=== PATIENT | female | born 1930 | race Caucasian/White ===

== ENCOUNTER 2016-05-16 15:00 | Inpatient (IN) | payer MEDICARE, BC ==
[~2016-05-16] VITALS: Ht 170.2 cm; Wt 58.5 kg
[2016-05-16] MEDS ORDERED: CEFTRIAXONE 1 GM/50 ML (PMX) 50 ML IVPB STA (16:25)
[2016-05-16] MEDS ORDERED: SODIUM CHLORIDE 0.9% 1L BAG IV* STA (16:25)
[2016-05-16] MEDS ORDERED: CIPROFLOXACIN 400MG/D5W 200 ML IVPB ONE (16:30)
[2016-05-16] MEDS ORDERED: ATOR10TA65 PO (16:39)
[2016-05-16] MEDS ORDERED: WARF3TAB PO (16:39)
[2016-05-16] MEDS ORDERED: CHOL100062 PO (16:40)
[2016-05-16] MEDS ORDERED: DIGO250T PO (16:42)
--- NOTE | 2016-05-16 16:53 | RADRPT ---
PROCEDURE: Chest x-ray CLINICAL INDICATION: Shortness of breath TECHNIQUE: Chest single view COMPARISON: None FINDINGS: There is left subclavian single lead pacemaker. Mild cardiomegaly and an sclerotic aortic calcifica tion is seen. The pulmonary vessels are normal in caliber. The lungs are clear. The costophrenic angles are sharp. The bones are osteopenic. There is previous right rotator cuff surgery. IMPRESSION: No acute cardiopulmonary disease. Mild cardiomegaly and an sclerotic aortic calcification Pacemaker RPTAT: HH .Adarsh Aguirre MD, Date Time Electronically viewed and signed by .Adarsh Aguirre MD, on 05/16/2016 16:53 .W/
[2016-05-16 17:11] LABS: ADD SCAN DIFF NO
[2016-05-16 17:25] LABS: BASOPHILS % 0.5 % (0.0-2.0); EOSINOPHILS # 0.2 10^3/ul (0.0-0.5); EOSINOPHILS % 2.4 % (0.0-7.0); HEMATOCRIT 39.4 % (37.0-47.0); HEMOGLOBIN 12.7 g/dl (12.0-16.0); LYMPHOCYTES # 2.6 10^3/ul (0.8-2.9); LYMPHOCYTES % 33.7 % (15.0-51.0); MEAN CORPUSCULAR HEMOGLOBIN 28.9 pg (29.0-33.0); MEAN CORPUSCULAR HGB CONC 32.2 g/dl (32.0-37.0); MEAN CORPUSCULAR VOLUME 89.7 fl (82.0-101.0); MEAN PLATELET VOLUME 10.3 fl (7.4-10.4); MONOCYTE # 0.8 10^3/ul (0.3-0.9); MONOCYTES % 10.1 % (0.0-11.0); NEUTROPHIL # 4.1 10^3/ul (1.6-7.5); NEUTROPHILS % 52.7 % (39.0-77.0); PLATELET COUNT 249 10^3/UL (140-415); RED BLOOD COUNT 4.39 10^6/ul (4.20-5.40); RED CELL DISTRIBUTION WIDTH 13.3 % (11.5-14.5); WHITE BLOOD COUNT 7.8 10^3/ul (4.8-10.8)
[2016-05-16 17:43] LABS: ADD UMIC YES; URINE BILIRUBIN (Dip) NEGATIVE (NEGATIVE); URINE BLOOD (Dip) 2+ (NEGATIVE); URINE GLUCOSE (Dip) NEGATIVE (NEGATIVE); URINE KETONES (Dip) TRACE (NEGATIVE); URINE LEUKOCYTE ESTERASE (Dip) 1+ (NEGATIVE); URINE NITRITE (Dip) NEGATIVE (NEGATIVE); URINE TOTAL PROTEIN (Dip) 2+ (NEGATIVE); URINE UROBILINOGEN (Dip) 0.2 E.U./dL (0.1-1.0)
[2016-05-16 17:45] LABS: ALBUMIN 3.8 g/dl (3.3-4.9); CHLORIDE 103 mmol/L (97-110); POTASSIUM 4.2 mmol/L (3.5-5.1); SODIUM 144 mmol/L (135-144)
[2016-05-16 17:46] LABS: INR 1.29; PROTIME 16.2 Sec (12.2-14.2); PT RATIO 1.3; URINE COLOR YELLOW (YELLOW)
[2016-05-16 17:47] LABS: ANION GAP 18 (8-16); ASPARTATE AMINO TRANSFERASE 40 IU/L (15-46); BILIRUBIN,INDIRECT 0.3 mg/dl (0-1.1); BILIRUBIN,TOTAL 0.3 mg/dl (0.2-1.3); CARBON DIOXIDE 27 mmol/L (21-31); CREATININE 0.83 mg/dl (0.44-1.00); PARTIAL THROMBOPLASTIN TIME 31.3 Sec (25.0-35.0)
[2016-05-16 17:48] LABS: ALANINE AMINOTRANSFERASE 30 IU/L (13-69); ALBUMIN/GLOBULIN RATIO 0.97; ALKALINE PHOSPHATASE 90 IU/L (42-121); BLOOD UREA NITROGEN 25 mg/dl (7-20); GLUCOSE 104 mg/dl (70-220); TOTAL PROTEIN 7.7 g/dl (6.1-8.1)
[2016-05-16 18:07] LABS: TROPONIN-I < 0.012 ng/ml (0.00-0.12)
[2016-05-16 18:10] LABS: BACTERIA,URINE MODERATE; SQUAMOUS EPITHELIAL CELL,UR FEW
[2016-05-16] MEDS ORDERED: IOHEXOL 300MG/ML 150 ML BTL ONE (18:44)
[2016-05-16] MEDS ORDERED: SOD CHLORIDE 0.9% 100 ML ONE (18:44)
[2016-05-16] MEDS ORDERED: DOCUSATE SODIUM 100 MG CAP PO PRN (19:00)
[2016-05-16] MEDS ORDERED: NACL 0.9% 3 ML SYG IV SCH (19:00)
[2016-05-16] MEDS ORDERED: hydrALAzine 20 MG INJ IV PRN (19:00)
[2016-05-16] MEDS ORDERED: NITROGLYCERIN (SL) 0.4 MG TAB SL PRN (19:00)
[2016-05-16] MEDS ORDERED: LORAZEPAM 2 MG INJ IV PRN (19:00)
[2016-05-16] MEDS ORDERED: MAGNESIUM HYDROXIDE 30ML CUP PO PRN (19:00)
[2016-05-16] MEDS ORDERED: HYDROCODONE/APAP (5/325) TAB PO PRN (19:00)
[2016-05-16] MEDS ORDERED: NA PHOSPHATE/BIPHOS 133 ML ENEMA PR PRN (19:00)
[2016-05-16] MEDS ORDERED: ACETAMINOPHEN 325 MG TAB PO PRN ×2 (19:00→19:30)
[2016-05-16] MEDS ORDERED: ALBUTEROL/IPRATROPIUM (NEB) 3 ML AMP HHN PRN (19:00)
[2016-05-16] MEDS ORDERED: ONDANSETRON 4 MG INJ IV PRN ×2 (19:00→19:30)
[2016-05-16] MEDS ORDERED: PIPER-TAZO 3.375 GM IV (PMX) 100 ML IVPB ONE (19:00)
[2016-05-16] MEDS ORDERED: morphine 2 MG INJ IV PRN (19:00)
--- NOTE | 2016-05-16 19:14 | RADRPT ---
PROCEDURE: CT brain without contrast CLINICAL INDICATION: Sudden altered mental status with confusion and headache TECHNIQUE: A CT of the brain was performed utilizing axial sections from the skull base through th e vertex without contrast. Sagittal and coronal images were also reformatted. The exam CTDIvol = 39. 54 mGy and DLP = 634.23 mGy-cm. COMPARISON: None available FINDINGS: No acute intracranial hemorrhage is identified. There is no mass effect or midline shift. No extra -axial fluid collection is seen. The ventricles and sulci are normal in size and configuration for the patient's provided age of 85 years consistent with age-appropriate generalized atrophy. Extensi ve low attenuation in the subcortical and periventricular white matter is nonspecific but likely ref lects the sequela of chronic small vessel ischemia. Sifuentes-white differentiation is preserved with no findings to suggest an acute ischemic infarct. The fourth ventricle is midline and there is no density alteration within the cecilia or cerebellum. The osseous structures are unremarkable. Trace chronic appearing ethmoid and left sphenoid sinus di sease is present the remaining included paranasal sinuses and mastoid air cells are clear. 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 Physician Jayson Date Time Electronically viewed and signed by Physician Jayson on 05/16/2016 19:13 /
--- NOTE | 2016-05-16 19:25 | ERA ---
ER Documentation Chief Complaint Date/Time DATE: 05/16/16 TIME: 19:16 Chief Complaint TX FOR UTI SINCE THURSDAY W/ NO IMPROVEMENT. RECENT SX ON 05/14. 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 Her detail technician oncologist surgeon is Dr. Vanessa Frank. The patient underwent radiation and is not currently undergoing any chemotherapy. In April roughly 1 month prior to arrival the patient developed vaginal pruritus and discharge. She was placed on a vaginal cream with no improvement of her symptoms. She had frequency urgency and dysuria but initially did not tell her family as they were traveling to visit other family members in [place]. Upon the return is when the patient told her daughter of the symptoms. Her daughter immediately phoned her primary care physician who obtained a urine culture. This was positive for urine infection and susceptible to ciprofloxacin. Therefore the patient was placed on ciprofloxacin 500 mg twice daily which she has been taking for the past 5 days. Her daughter brought her to the emergency department today she states her symptoms have not improved as her dysuria appears to be significantly worsening. She has not had a fever shaking or chills. She has felt nauseous but has not experience any emesis. According to the daughter she was complaining of mild suprapubic pain but denied any flank pain. She has had no hemoptysis no hematemesis and no melanotic stools. She has no shortness of breath at rest or exertion. She denies any chest pain or pressure that radiates to the neck arm back or jaw ROS All systems reviewed and are negative except as per history of present illness. Medications Home Meds Reported Medications Digoxin* (Digitek*) 250 Mcg Tablet, 0.125 MG PO QAM, TAB 05/16/16 Cholecalciferol* (Vitamin D3*) 1,000 Unit Tablet, 1000 UNIT PO DAILY, TAB 05/16/16 Atorvastatin Calcium (Atorvastatin Calcium) 10 Mg Tablet, 10 MG PO QHS, #30 TAB 05/16/16 Warfarin Sodium* (Coumadin*) 3 Mg Tablet, 3 MG PO QHS, TAB 05/16/16 Allergies Allergies: Coded Allergies: morphine (Verified Allergy, Unknown, n/v, 05/16/16) PMhx/Soc History of Surgery: Yes (ROTATOR CUFF SX) Physical Exam Vitals Vital Signs Date Time Temp Pulse Resp B/P Pulse Ox O2 Delivery O2 Flow Rate FiO2 05/16/16 15:14 98.4 100 20 123/61 97 Physical Exam Constitutional:Well-developed. Well-nourished. HEENT:Normocephalic. Atraumatic.Pupils were equal round reactive to light. Dry mucous membranes.No tonsillar exudates. Neck: No nuchal rigidity. No lymphadenopathy. No posterior cervical spine tenderness or step-offs. Respiratory: Not using accessory muscles of respiration.Lungs were clear to auscultation bilaterally. No rhonchi. No rales. No wheezing. Cardiovascular: Regular rate regular rhythm.No murmurs. No rubs were appreciated.S1, S2 normal. Distal pulses are palpable 2+ bilaterally. GI: Abdomen was soft. Mild suprapubic tenderness. Non Distended. No pulsatile abdominal masses or bruits. No rebound. No guarding. Bowel sounds were present and normal. Muscle skeletal: Full range of motion of both the upper and lower extremities bilaterally.Normal muscle tone.No assymetrical calf tenderness or swelling. Skin: No petechia, no purpura. No lesions on the palms or the soles of the feet. No maculopapular rash. NEURO: Patient was alert, awake, orientated x3.No facial droop. Gait observed and normal with no ataxia.Speech had regular rate and rhythm. No focal neurological deficits. Result Diagram: 05/16/16 1645 05/16/16 1645 Results 24 hrs Laboratory Tests Test 05/16/16 16:45 Activated Partial Thromboplast Time 31.3Sec Alanine Aminotransferase (ALT/SGPT) 30IU/L Albumin 3.8g/dl Albumin/Globulin Ratio 0.97 Alkaline Phosphatase 90IU/L Anion Gap 18 Aspartate Amino Transf (AST/SGOT) 40IU/L Basophils # 0.010^3/ul Basophils % 0.5% Blood Urea Nitrogen 25mg/dl Calcium Level 10.0mg/dl Carbon Dioxide Level 27mmol/L Chloride Level 103mmol/L Creatinine 0.83mg/dl Direct Bilirubin 0.00mg/dl Eosinophils # 0.210^3/ul Eosinophils % 2.4% Globulin 3.90g/dl Glucose Level 104mg/dl Hematocrit 39.4% Hemoglobin 12.7g/dl INR International Normalized Ratio 1.29 Indirect Bilirubin 0.3mg/dl Lactic Acid Level 2.2mmol/L Lymphocytes # 2.610^3/ul Lymphocytes % 33.7% Mean Corpuscular Hemoglobin 28.9pg Mean Corpuscular Hemoglobin Concent 32.2g/dl Mean Corpuscular Volume 89.7fl Mean Platelet Volume 10.3fl Monocytes # 0.810^3/ul Monocytes % 10.1% Neutrophils # 4.110^3/ul Neutrophils % 52.7% Nucleated Red Blood Cells # 0.010^3/ul Nucleated Red Blood Cells % 0.0/100WBC Platelet Count 15134^3/UL Potassium Level 4.2mmol/L Prothrombin Time 16.2Sec Prothrombin Time Ratio 1.3 Red Blood Count 4.3910^6/ul Red Cell Distribution Width 13.3% Sodium Level 144mmol/L Total Bilirubin 0.3mg/dl Total Protein 7.7g/dl Troponin I < 0.012ng/ml Urine Bacteria MODERATE Urine Bilirubin NEGATIVE Urine Clarity CLOUDY Urine Color YELLOW Urine Glucose NEGATIVE% Urine Hemoglobin 2+ Urine Ketones TRACE Urine Leukocyte Esterase 1+ Urine Microscopic RBC 5-10/HPF Urine Microscopic WBC >50/HPF Urine Nitrite NEGATIVE Urine Specific Macy >=1.030 Urine Squamous Epithelial Cells FEW Urine Total Protein 2+ Urine Urobilinogen 0.2 E.U./dL Urine pH 5.5 White Blood Count 7.810^3/ul Current Medications Medications (Trade) Dose Ordered Sig/Cayla Route PRN Reason Start Time Stop Time Status Last Admin Dose Admin Sodium Chloride 1780 ml 1,780 ml BOLUS OVER 2 HOURS STAT IV* 05/16/16 16:25 05/16/16 16:28 DC 05/16/16 17:24 Ceftriaxone Sodium 50 ml @ 100 mls/hr ONCE STAT IVPB 05/16/16 16:25 05/16/16 16:54 DC 05/16/16 17:24 Ciprofloxacin/ Dextrose (Cipro Ivpb) 200 ml @ 200 mls/hr ONCE ONCE IVPB 05/16/16 16:30 05/16/16 17:29 DC 05/16/16 18:39 IV Flush (NS 3 ml) 3 ml PER PROTOCOL IV 05/16/16 19:00 Ondansetron HCl (Zofran Inj) 4 mg Q6H PRN IV NAUSEA AND/OR VOMITING 05/16/16 19:00 Acetaminophen (Tylenol Tab) 650 mg Q6H PRN PO PAIN LEVEL 1-3 OR FEVER 05/16/16 19:00 Acetaminophen/ Hydrocodone Bitart ([place] (5/325)) 1 tab Q6H PRN PO MODERATE PAIN LEVEL 4-6 05/16/16 19:00 Morphine Sulfate (morphine) 2 mg Q4H PRN IV SEVERE PAIN LEVEL 7-10 05/16/16 19:00 Docusate Sodium (Colace) 100 mg Q12H PRN PO CONSTIPATION 05/16/16 19:00 Magnesium Hydroxide (Milk Of Mag) 30 ml DAILY PRN PO CONSTIPATION 05/16/16 19:00 Sodium Biphosphate/ Sodium Phosphate (Fleet Enema) [address] CONSTIPATION 05/16/16 19:00 Pantoprazole 40 mg 40 mg DAILY@06 PO 05/17/16 06:00 Sodium Chloride (1/2 NS) 1,000 ml @ 75 mls/hr [id number] IV 05/16/16 18:41 Lorazepam (Ativan) 0.5 mg Q6H PRN IV ANXIETY 05/16/16 19:00 Albuterol/ Ipratropium 3 ml 3 ml Q4H RESP THERAPY PRN HHN SHORTNESS OF BREATH 05/16/16 19:00 Piperacillin Sod/ Tazobactam Sod (Zosyn 3.375gm/ 100 ml (Pmx)) 100 ml @ 200 mls/hr Q6 IVPB 05/17/16 00:00 Hydralazine HCl (Apresoline) 10 mg Q6H PRN IV ELEVATED BLOOD PRESSURE 05/16/16 19:00 Nitroglycerin (Nitroglycerin (Sl Tab) 0.4 Mg) 1 tab Q5M PRN SL ANGINA 05/16/16 19:00 Atorvastatin Calcium (Lipitor) 10 mg QHS PO 05/16/16 21:00 Cholecalciferol (Vitamin D) 1,000 unit DAILY PO 05/17/16 09:00 Digoxin (Digoxin) 0.125 mg DAILY@13 PO 05/17/16 13:00 Warfarin Sodium (Coumadin) 3 mg QHS PO 05/16/16 21:00 IV Flush 10 ml 10 ml STK-MED ONCE .ROUTE 05/16/16 18:44 05/16/16 18:45 DC 05/16/16 19:07 Sodium Chloride (NS) 100 ml @ ud STK-MED ONCE .ROUTE 05/16/16 18:44 05/16/16 18:45 DC 05/16/16 19:07 Iohexol 150 ml 150 ml STK-MED ONCE .ROUTE 05/16/16 18:44 05/16/16 18:45 DC 05/16/16 19:07 Piperacillin Sod/ Tazobactam Sod (Zosyn 3.375gm/ 100 ml (Pmx)) 100 ml @ 200 mls/hr ONCE ONCE IVPB 05/16/16 19:00 05/16/16 19:29 Ondansetron HCl (Zofran Inj) 4 mg ER BRIDGE PRN IV NAUSEA AND/OR VOMITING 05/16/16 19:30 05/17/16 19:29 Acetaminophen (Tylenol Tab) 650 mg ER BRIDGE PRN PO MILD PAIN/FEVER 05/16/16 19:30 05/17/16 19:29 Procedures/MDM This patient presented to the emergency department with a known history of a urinary tract infection failed outpatient treatment given that her symptoms have progressively worsened. The patient was immediately placed on a hot strip mill inspector continuous pulse oximetry and IV access was established by nursing staff. Blood cultures and urine cultures were obtained and the patient was started on broad-spectrum antibiotics after her urinalysis was positive for UTI. The patient was given ceftriaxone, ciprofloxacin as well as Zosyn. A Acosta catheter was placed as requested by the patient and she states she felt too weak to ambulate to continually get up to go to the bathroom due to her urinary frequency I obtained a 1 view chest radiograph which indicated the following: No acute cardiopulmonary disease. Mild cardiomegaly and an sclerotic aortic calcification Pacemaker Given the patient had mild suprapubic tenderness I did feel is necessary to repeat a CT scan of the abdomen to rule out an infection or metastasis. CT scan of the abdomen read by the radiologist indicated the following: Nursing staff approached myself and indicated that the patient appeared more confused. At roughly 1900 I reevaluated the patient after her confusion and the patient had no muscle skeletal weakness, no facial droop but was no longer able to remember her date, where she was but did recognize her daughter. There is no slurred speech. I did feel this was more likely result of the patient's urinary tract infection with concern for impending sepsis, however I did obtain a CT scan of the head which showed no acute intracerebral hemorrhage or mass-effect or midline shift. I also spoke on the phone with her oncological surgeon Dr. Frank, and informed him of the patient's condition. He kindly stated that he will evaluate the patient upon admission to the hospital. I have placed a consult to his list. The patient will be admitted in serious condition with an anticipated stay of greater than [address] Ang the internal medicine physician. Given the patient's multiple comorbidities she will be admitted to the telemetry service to rule out complication such as ectopy. 12 Lead EKG tracing ordered and reviewed by myself showed: Irregular rhythm of 74 bpm bpm and no arrhythmia. CT interval normal not appreciated as P waves were not present patient has premature ventricular complexes but also has a pacemaker QRS duration normal. No ST segment elevation No ST segment depression. No changes consistent with acute ischemia. Departure Diagnosis: Primary Impression: Urinary tract infection Qualified Code: N39.0 - Urinary tract infection without hematuria, site unspecified Condition: Serious JENIFFER KENNY May 16, 2016 19:25
[2016-05-16 19:32] LABS: ADD UMIC YES; URINE BILIRUBIN (Dip) NEGATIVE (NEGATIVE); URINE BLOOD (Dip) 1+ (NEGATIVE); URINE COLOR LT. YELLOW (YELLOW); URINE GLUCOSE (Dip) NEGATIVE (NEGATIVE); URINE KETONES (Dip) TRACE (NEGATIVE); URINE LEUKOCYTE ESTERASE (Dip) 1+ (NEGATIVE); URINE NITRITE (Dip) NEGATIVE (NEGATIVE); URINE TOTAL PROTEIN (Dip) 2+ (NEGATIVE); URINE UROBILINOGEN (Dip) 0.2 E.U./dL (0.1-1.0)
--- NOTE | 2016-05-16 19:37 | RADRPT ---
PROCEDURE: CT abdomen and pelvis with contrast. CLINICAL INDICATION: Abdominal pain. Altered mental status. TECHNIQUE: CT scan of the abdomen and pelvis with contrast was performed. Coronal and sagittal im ages were also reformatted. 80 cc Omnipaque-300 intravenous contrast was administered without compl ication. Total exam CTDIvol = 8.77 mGy and DLP = 403.84 mGy-cm. COMPARISON: None. FINDINGS: Visualized lower thorax: Mild linear basilar scarring is seen bilaterally. Mild cardiomegaly is pre sent with a cardiac pacemaker There is no evidence for pleural effusion. Liver, gallbladder, pancreas and spleen: Normal hepatic contour, attenuation in size. There is no evidence for liver mass or ductal dilatation. The gallbladder is unremarkable. No common bile duct dilatation is evident. The pancreas is normal. The spleen is normal, not enlarged. Adrenal glands and genitourinary system: The adrenal glands are normal bilaterally. The kidneys ar e normal in size, contour and attenuation with no evidence for masses, calculi or hydronephrosis. Sy mmetric renal enhancement is present without evidence of pyelonephritis The ureters are unremarkable . The urinary bladder is contracted around a Acosta catheter, enhancement of the bladder wall and mi ld stranding of the surrounding fat raises concern for cystitis. The uterus is not visualized presu mably surgically removed. No ovarian or adnexal masses are present. Gastrointestinal system: The stomach is decompressed without obvious abnormality There is no evide nce of obstruction, ileus or inflammation. The appendix and surrounding fat are normal. The constip ation pattern is noted with a few scattered colonic diverticula, most diverticular disease in the si gmoid segment, but no evidence of diverticulitis or colitis. Peritoneum, retroperitoneum, vessels and lymph nodes: The abdominal aorta is normal in caliber. Th ere is moderate aortic and iliac system atherosclerotic calcification. Inferior vena cava is normal in caliber. There is no evidence for adenopathy. The peritoneal cavity is normal with no evidence for ascites. No pneumoperitoneum is present Osseous structures and musculoskeletal system: Demineralization with chronic-appearing inferior L1 and superior L5 mild compression deformities. No evidence of acute osseous abnormality, lytic or bl astic lesion. No subcutaneous abnormalities are present. RPTAT:HJJR IMPRESSION: 1. Stranding of the fat surrounding the urinary bladder which is contracted around a Acosta catheter raises concern for cystitis and urinalysis correlation, if not already performed, is recommended. 2. Constipation pattern with diverticular disease predominate of the sigmoid colon but no evidence of diverticulitis or colitis. 3. Demineralization with chronic-appearing inferior L1 and superior L5 mild compression deformities without bone retropulsion or compromise of the central canal. 4. Atherosclerotic calcification of the aorta and iliac systems. 5. Mild bibasilar lung scarring, mild cardiomegaly and cardiac pacemaker. Patric Vazquez Physician Date Time Electronically viewed and signed by Patric Vazquez Physician on 05/16/2016 19:37 JR/
[2016-05-16 20:34] VITALS: TEMP 98.4
[2016-05-16 20:38] LABS: BACTERIA,URINE OCCASIONAL; SQUAMOUS EPITHELIAL CELL,UR RARE
[2016-05-16 21:42] VITALS: PULSE 67
[2016-05-16 21:43] VITALS: PULSE 67
[2016-05-16] MEDS: ATORVASTATIN 10 MG TAB PO SCH (22:37)
[2016-05-16] MEDS: WARFARIN 3 MG TAB PO SCH (22:37)
[2016-05-16] MEDS: SOD CHLORIDE 0.45% 1,000 ML IV SCH (22:38)
[2016-05-16 23:06] VITALS: Ht 170.2 cm; Wt 58.5 kg
[2016-05-16 23:57] VITALS: BP 110/59; RESP 18
[2016-05-17] VITALS (13 sets, daily range): BP systolic 95–120; BP diastolic 51–62; PULSE 60–78; RESP 16–18
[2016-05-17] MEDS: PIPER-TAZO 3.375 GM IV (PMX) 100 ML IVPB SCH ×5 (00:48→23:45)
[2016-05-17] MEDS: PANTOPRAZOLE (EC) 40 MG TAB PO SCH (06:07)
[2016-05-17 07:15] LABS: CHOL/HDL RATIO 4.3 RATIO
[2016-05-17 07:18] LABS: ADD SCAN DIFF NO
[2016-05-17 07:21] LABS: BASOPHILS % 0.6 % (0.0-2.0); EOSINOPHILS # 0.2 10^3/ul (0.0-0.5); EOSINOPHILS % 3.2 % (0.0-7.0); HEMATOCRIT 36.3 % (37.0-47.0); HEMOGLOBIN 11.6 g/dl (12.0-16.0); LYMPHOCYTES # 1.8 10^3/ul (0.8-2.9); LYMPHOCYTES % 28.9 % (15.0-51.0); MEAN CORPUSCULAR HEMOGLOBIN 28.8 pg (29.0-33.0); MEAN CORPUSCULAR VOLUME 90.1 fl (82.0-101.0); MONOCYTE # 0.7 10^3/ul (0.3-0.9); MONOCYTES % 11.4 % (0.0-11.0); NEUTROPHIL # 3.4 10^3/ul (1.6-7.5); NEUTROPHILS % 54.9 % (39.0-77.0); PLATELET COUNT 234 10^3/UL (140-415); RED BLOOD COUNT 4.03 10^6/ul (4.20-5.40); RED CELL DISTRIBUTION WIDTH 13.5 % (11.5-14.5); WHITE BLOOD COUNT 6.2 10^3/ul (4.8-10.8)
[2016-05-17 07:44] LABS: THYROID STIMULATING HORMONE 1.01 MIU/L (0.465-4.680)
[2016-05-17] MEDS: CHOLECALCIFEROL 1,000 UNIT TAB PO SCH (09:04)
[2016-05-17 10:17] LABS: POTASSIUM 3.9 mmol/L (3.5-5.1)
[2016-05-17 10:20] LABS: CREATININE 0.87 mg/dl (0.44-1.00)
[2016-05-17 10:21] LABS: CALCIUM 9.2 mg/dl (8.4-10.2); MAGNESIUM 2.1 mg/dl (1.7-2.5); PHOSPHORUS 3.4 mg/dl (2.5-4.9)
[2016-05-17 10:32] LABS: INR 1.32; PROTIME 16.5 Sec (12.2-14.2); PT RATIO 1.3
--- NOTE | 2016-05-17 10:39 | HP ---
Date/Time of Note Date/Time of Note DATE: 05/17/16 TIME: 10:32 Assessment/Plan VTE Prophylaxis VTE Prophylaxis Intervention: other (Coumadin) Lines/Catheters IV Catheter [facility] (from [facility] Peripheral IV Urinary Cath still in place: Yes Assessment/Plan Assessment/Plan 1. Recurrent UTI with probable pyelonephritis - IV abx - f/u culture results - pain mgmt 2. Hx of Uterine ca s/p EMILIA - Need to f/u with PMD/Oncologist as outpt 3. Pacemaker - Cont home meds - monitor in telemetry 4. Hx of Aortic valve replacement - cont Coumadin. 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 Her public relations professional oncologist surgeon is Dr. Vanessa Frank. The patient underwent radiation and is not currently undergoing any chemotherapy. In April roughly 1 month prior to arrival the patient developed vaginal pruritus and discharge. She was placed on a vaginal cream with no improvement of her symptoms. She had frequency urgency and dysuria but initially did not tell her family as they were traveling to visit other family members in [place]. Upon the return is when the patient told her daughter of the symptoms. Her daughter immediately phoned her primary care physician who obtained a urine culture. This was positive for urine infection and susceptible to ciprofloxacin. Therefore the patient was placed on ciprofloxacin 500 mg twice daily which she has been taking for the past 5 days. Her daughter brought her to the emergency department today she states her symptoms have not improved as her dysuria appears to be significantly worsening. She has not had a fever shaking or chills. She has felt nauseous but has not experience any emesis. According to the daughter she was complaining of mild suprapubic pain but denied any flank pain. She has had no hemoptysis no hematemesis and no melanotic stools. She has no shortness of breath at rest or exertion. She denies any chest pain or pressure that radiates to the neck arm back or jaw In ER, urinalysis was consistent with UTI. She was afebrile with normal WBC PMH/Family/Social Social History Smoking Status: Never smoker Exam/Review of Systems Vital Signs Vitals Vital Signs Date Time Temp Pulse Resp B/P Pulse Ox O2 Delivery O2 Flow Rate FiO2 05/17/16 08:01 61 05/17/16 07:25 98.1 18 95/51 97 05/17/16 04:22 Room Air Intake and Output 05/16/16 05/16/16 05/17/16 15:00 23:00 07:00 Intake Total 1000 ml Output Total 500 ml Balance 500 ml Labs Result Diagram: 05/17/16 0530 05/17/16 0530 Medications Medications Current Medications Ondansetron HCl (Zofran Inj) 4 mg Q6H PRN IV NAUSEA AND/OR VOMITING; Start 05/16 at 19:00 Acetaminophen (Tylenol Tab) 650 mg Q6H PRN PO PAIN LEVEL 1-3 OR FEVER; Start at 19:00 Acetaminophen/ Hydrocodone Bitart ([place] (5/325)) 1 tab Q6H PRN PO MODERATE PAIN LEVEL 4-6; Start 05/16/16 at 19:00 Morphine Sulfate (morphine) 2 mg Q4H PRN IV SEVERE PAIN LEVEL 7-10; Start at 19:00 Docusate Sodium (Colace) 100 mg Q12H PRN PO CONSTIPATION; Start 05/16/16 at 19: 00 Magnesium Hydroxide (Milk Of Mag) 30 ml DAILY PRN PO CONSTIPATION; Start at 19:00 Sodium Biphosphate/ Sodium Phosphate (Fleet Enema) 133 ml DAILY PRN [place] CONSTIPATION; Start 05/16/16 at 19:00 Pantoprazole 40 mg 40 mg DAILY@06 PO Last administered on 05/17/16 06:07; Admin Dose 40 MG; Start 05/17/16 at 06:00 Sodium Chloride (1/2 NS) 1,000 ml @ 75 mls/hr [id number] IV Last administered on 05/16/16 22:38; Admin Dose 75 MLS/HR; Start 05/16/16 at 18:41 Lorazepam 0.5 mg 0.5 mg Q6H PRN IV ANXIETY; Start 05/16/16 at 19:00 Piperacillin Sod/ Tazobactam Sod (Zosyn 3.375gm/ 100 ml (Pmx)) 100 ml @ 200 mls /hr Q6 IVPB Last administered on 05/17/16 06:07; Admin Dose 200 MLS/HR; Start 05/17/16 at 00:00 Hydralazine HCl (Apresoline) 10 mg Q6H PRN IV ELEVATED BLOOD PRESSURE; Start at 19:00 Nitroglycerin (Nitroglycerin (Sl Tab) 0.4 Mg) 1 tab Q5M PRN SL ANGINA; Start at 19:00 Atorvastatin Calcium (Lipitor) 10 mg QHS PO Last administered on 05/16/16 22:37 ; Admin Dose 10 MG; Start 05/16/16 at 21:00 Cholecalciferol (Vitamin D) 1,000 unit DAILY PO Last administered on 05/17/16 09:04; Admin Dose 1,000 UNIT; Start 05/17/16 at 09:00 Digoxin (Digoxin) 0.125 mg DAILY@13 PO ; Start 05/17/16 at 13:00 Warfarin Sodium (Coumadin) 3 mg QHS PO Last administered on 05/16/16 22:37; Admin Dose 3 MG; Start 05/16/16 at 21:00 RATNA VILLEGAS MD May 17, 2016 10:38
--- NOTE | 2016-05-17 13:12 | CONS ---
DATE OF ADMISSION: 05/16/2016 DATE OF CONSULTATION: 05/17/2016 HISTORY: This is an 85-year-old white female who has a diagnosis of uterine carcinoma and underwent surgical staging robotically on 10/01/2015. 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 She was treated with vaginal brachytherapy. She has been followed in the office. He r most recent CA-125 was normal in March, and a CT scan of the abdomen and pelvis was also normal in March 2016. She has been struggling with urinary tract infections in the last 2 weeks and she has been taking Cipro since Thursday. Her symptoms have gotten worse, and now she is disoriented and is admitted to the hospital after Emergency Room. She underwent imaging studies of the brain, abdom en and pelvis and they are all reassuring. She has started on Zosyn and Cipro as antibiotics. THE PATIENT IS ALLERGIC TO MORPHINE. PAST MEDICAL HISTORY: Atrial fibrillation, aortic valve replacement, and uterine cancer. PAST SURGICAL HISTORY: Consistent with recent robotic hysterectomy with lymph node sampling. She a lso had an aortic valve replacement. She also had cataract surgery and also pacemaker placement. SOCIAL HISTORY: The patient resides with her daughter, at least currently. MEDICATIONS: Consist of: 1. Coumadin. 2. Digoxin. PHYSICAL EXAMINATION: VITALS: The patient is afebrile. Pulse in the 70s. Blood pressure within normal limits. GENERAL: The patient is in no apparent distress, exhausted. HEENT: Within normal limits. LUNGS: Clear to auscultation. CARDIAC: Cardiac rhythm is controlled. ABDOMEN: Soft, nontender. PELVIC: Deferred. LOWER EXTREMITIES: No edema. LABORATORY STUDIES: Her white count is at 6.2. Creatinine is normal at 0.9. Lactic acid level is 1.8. Her urinalysis does show greater than 50 WBCs and there is 1+ leukocyte esterase. CT scan of brain, abdomen and pelvis are reassuring, except for some stranding of the ____ bladder, concernin g for cystitis. Of note, the patient had a urine culture done on May 08 that shows E. coli and is resistant to penicillin, resistant to cephalosporin and Cipro. It is also resistant to piperaci llin. It is sensitive to imipenem, ____, tetracycline and Bactrim and also to macrodantin. IMPRESSION: Complicated urinary tract infection with a questionable polynephritis. PLAN: We will need to place on appropriate antibiotics intravenously and also oral. When the patie nt is stabilized, she can be followed as an outpatient with me and we will continue her outpatient t reatment. A copy of her culture results, CT scan and the medical history is in the chart for the [facility] care team to review. Dictated By: QUE JENKINS/ROLANDO Conf#: [id number] DID#: [id number]
[2016-05-17] MEDS: DIGOXIN 0.25 MG TAB PO SCH (15:05)
[2016-05-17] MEDS: SOD CHLORIDE 0.45% 1,000 ML IV SCH ×2 (16:00→20:19)
[2016-05-17] MEDS: WARFARIN 3 MG TAB PO SCH (20:12)
[2016-05-17] MEDS: ATORVASTATIN 10 MG TAB PO SCH (20:12)
[2016-05-18] VITALS (10 sets, daily range): BP systolic 92–127; BP diastolic 52–67; PULSE 59–127; RESP 17–18
[2016-05-18] MEDS: PANTOPRAZOLE (EC) 40 MG TAB PO SCH (05:52)
[2016-05-18] MEDS: PIPER-TAZO 3.375 GM IV (PMX) 100 ML IVPB SCH ×2 (05:52→12:38)
[2016-05-18 09:05] LABS: ADD SCAN DIFF NO
[2016-05-18] MEDS: CHOLECALCIFEROL 1,000 UNIT TAB PO SCH (09:05)
[2016-05-18 09:11] LABS: BASOPHILS % 0.6 % (0.0-2.0); EOSINOPHILS # 0.2 10^3/ul (0.0-0.5); EOSINOPHILS % 3.8 % (0.0-7.0); HEMOGLOBIN 11.9 g/dl (12.0-16.0); LYMPHOCYTES # 1.8 10^3/ul (0.8-2.9); LYMPHOCYTES % 28.8 % (15.0-51.0); MEAN CORPUSCULAR HEMOGLOBIN 28.8 pg (29.0-33.0); MEAN CORPUSCULAR HGB CONC 31.3 g/dl (32.0-37.0); MEAN PLATELET VOLUME 9.5 fl (7.4-10.4); MONOCYTE # 0.5 10^3/ul (0.3-0.9); MONOCYTES % 7.2 % (0.0-11.0); NEUTROPHIL # 3.7 10^3/ul (1.6-7.5); NEUTROPHILS % 58.6 % (39.0-77.0); PLATELET COUNT 232 10^3/UL (140-415); RED BLOOD COUNT 4.13 10^6/ul (4.20-5.40); RED CELL DISTRIBUTION WIDTH 13.3 % (11.5-14.5); WHITE BLOOD COUNT 6.2 10^3/ul (4.8-10.8)
[2016-05-18 09:19] LABS: INR 1.48; PT RATIO 1.4
[2016-05-18 09:22] LABS: POTASSIUM 4.1 mmol/L (3.5-5.1)
[2016-05-18 09:24] LABS: CREATININE 0.77 mg/dl (0.44-1.00)
[2016-05-18 09:25] LABS: CALCIUM 8.9 mg/dl (8.4-10.2)
[2016-05-18] MEDS: DIGOXIN 0.25 MG TAB PO SCH (12:37)
--- NOTE | 2016-05-18 15:44 | PN ---
DATE: 05/17/2016 SUBJECTIVE: The patient says she has less dysuria now. No acute events overnight. Family at [facility]. OBJECTIVE: VITAL SIGNS: Stable, no fevers. GENERAL: The patient lying in bed, pleasant lady, alert, in no acute distress. Family at bedside. HEENT: Pupils equal, round, react to light. Extraocular muscles intact. NECK: Supple, no thyromegaly. LUNGS: Clear to auscultation bilaterally. CARDIOVASCULAR: S1, S2 heard. No rubs or gallops. ABDOMEN: Soft, nontender, nondistended. Normal bowel sounds. No rebound or guarding. MUSCULOSKELETAL: No lower extremity edema bilaterally. NEUROLOGIC: No focal deficits. LABORATORY DATA: CBC is normal. Basic metabolic panel is normal. Lactic acid is normal now. UA d id show 1+ leukocyte esterase positive, occasional moderate amount of bacteria. ASSESSMENT AND PLAN: An 85-year-old female with history of pacemaker, aortic valve surgery in the p ast, remote history of uterine cancer in 08/2015, status post total abdominal hysterectomy and bilat eral salpingo-oophorectomy in 09/2015, who presents with recurrent urinary tract infection and mild pyelonephritis. 1. Dysuria secondary to urinary tract infection and probable pyelonephritis, improving. White bloo d cell count is normal. No fevers. Follow up urine culture results. Continue IV antibiotics, IV f luids as needed. Pain control medications as well. 2. History of uterine cancer, status post TAHBSO. Continue to monitor for now. If worsens, consid er oncology consult. She sees Dr. Frank as an outpatient. 3. History of pacemaker. No present issues. Continue telemetry monitoring. Continue current medi cations which include Lipitor, digoxin, Coumadin. 4. History of aortic valve replacement. INR subtherapeutic. Continue Coumadin, monitor INR daily. May need to increase the dose. Consider PT consult as well. Dictated By: ISABEL NAVARRETE Conf#: [id number] DID#: [id number]
--- NOTE | 2016-05-18 16:05 | PDOCDIS ---
Discharge Instructions CONDITION Patient Condition: Stable HOME CARE INSTRUCTIONS: Special Diet: regular ACTIVITY: Activity Restrictions: Slowly Increase Activity FOLLOW UP/APPOINTMENTS Appointments Please take your medications as prescribed, and see your doctor in the clinic in 1 week. ISABEL JESUS May 18, 2016 16:04
[2016-05-18] MEDS ORDERED: BACTDS PO (16:06)
[2016-05-18] MEDS ORDERED: NITR-58 PO (16:06)
--- NOTE | 2016-05-18 16:23 | DS ---
DATE OF ADMISSION: 05/16/2016 DATE OF DISCHARGE: 05/18/2016 HOSPITAL COURSE: The patient came in with signs of recurrent UTI and signs of early pyelonephritis. Her white count was actually normal, so she was admitted to telemetry floor. Her urine culture wa s positive for ESBL E. coli. She was placed on IV antibiotics. Over the course of her hospital sta y, her dysuria symptoms improved. She had no fevers. She was able to ambulate and tolerate a p.o. diet. She was also seen by the [facility] team, who has seen the patient in the past, who also recomme nded continuing antibiotics for her treatment. Her labs are stable. Because she is clinically improved, she will be discharged home today in improved condition. She wi ll be sent with Macrobid 100 mg p.o. b.i.d. for 7 days, Bactrim double strength 1 tab p.o. b.i.d. fo r 7 days. She will need to follow up with primary care doctor team and [facility] doctor in the clinic in the next 1 to 2 weeks. FINAL DIAGNOSES: 1. Recurrent urinary tract infection with extended-spectrum beta-lactamase Escherichia coli urinary tract infection with mild pyelonephritis, now improving on antibiotics. 2. History of uterine cancer, status post total abdominal hysterectomy in the past. 3. History of aortic valve surgery in the past, on Coumadin. 4. History of pacemaker in the past. 5. History of rotator cuff surgery in the past. Time spent on discharge with the patient: 40 minutes. Dictated By: ISABEL NAVARRETE Conf#: [id number] DID#: [id number]
== END 2016-05-18 17:37 | disposition home or self-care (01) | DRG 690 ==
LOC: E/R 15:00 → TEL 19:14
PROVIDERS: ADMIT Hospitalist; ATTEND Hospitalist
DX: N39.0 Urinary tract infection, site not specified (principal); I48.91 Unspecified atrial fibrillation; B96.20 Unspecified Escherichia coli [E. coli] as the cause of diseases classified elsewhere; Z85.42 Personal history of malignant neoplasm of other parts of uterus; Z95.0 Presence of cardiac pacemaker; Z79.01 Long term (current) use of anticoagulants; Z95.2 Presence of prosthetic heart valve
CPT/HCPCS: 70450; 71010; 74177; 80048; 80053; 80061; 81001; 81003; 83036; 83605; 83735; 84100; 84439; 84443; 84484; 85025; 85610; 85730; 87040; 87086; 93005; 96374; 96375; J0696; J0744; J2543; J7030; Q9967